=== PATIENT | male | born 1955 | race Two or more races ===

== ENCOUNTER 2016-10-11 14:39 | Emergency (ER) | payer BC ==
[~2016-10-11] VITALS: Ht 167.6 cm; Wt 63.5 kg
--- NOTE | 2016-10-11 15:28 | RAD ---
Left knee with patella, 4 views, 10/11/2016: History: Pain and swelling No fracture or dislocation is identified. No significant arthritic change is seen. No joint effusion is evident. IMPRESSION: No acute left knee abnormality is detected.
--- NOTE | 2016-10-11 16:00 | PHYS DOC ---
Past Medical History Past Medical History: Hypertension Past Surgical History: No Surgical History Alcohol Use: None Drug Use: None Adult General Chief Complaint Chief Complaint: LOWER EXT PAIN [facility] HPI Patient is a 61 year old male presents to the emergency department with a history of left knee pain. Patient denies any, or injury. He was seen at the emergency department on Sunday for the same pain and discomfort. Patient states they were more worried about the melanoma on his head as well as his blood pressure and did not examine his knee. She states that they did provide him with some lisinopril for his blood pressure 5 mg daily. Blood pressure at this time is still elevated 194 over 90s. Patient was recommended to take 2 tablets daily to help with his blood pressure. Patient once again denies any trauma or injury to his knee. He denies any numbness or tingling into the lower leg. He states that the pain is increased when trying to ambulate. Patient has tried Tylenol for pain with little results. Patient denies SOA, denies chest pain, denies headache or blurred vision, denies ringing in the ears. Review of Systems Review of Systems Constitutional: Denies fever or chills [] Eyes: Denies change in visual acuity, redness, or eye pain [] HENT: Denies nasal congestion or sore throat [] Respiratory: Denies cough or shortness of breath [] Cardiovascular: No additional information not addressed in HPI [] GI: Denies abdominal pain, nausea, vomiting, bloody stools or diarrhea [] : Denies dysuria or hematuria [] Musculoskeletal: Denies back pain. C/o left knee pain Integument: Denies rash or skin lesions [] Neurologic: Denies headache, focal weakness or sensory changes [] Endocrine: Denies polyuria or polydipsia [] Allergies Allergies Allergies Coded Allergies Type Severity Reaction Last Updated Verified No Known Drug Allergies 10/11/16 No Physical Exam Physical Exam Constitutional: Well developed, well nourished, no acute distress, non-toxic appearance. [] HENT: Normocephalic, atraumatic, bilateral external ears normal, oropharynx moist, no oral exudates, nose normal. [] Eyes: PERRLA, EOMI, conjunctiva normal, no discharge. [] Neck: Normal range of motion, no tenderness, supple, no stridor. [] Cardiovascular:Heart rate regular rhythm, no murmur [] Lungs & Thorax: Bilateral breath sounds clear to auscultation [] Skin: Warm, dry, no erythema, no rash. [] Back: No tenderness Extremities: Left knee tenderness noted just below the knee, No discoloration noted, no redness noted. No cyanosis, no clubbing, ROM intact, no edema. [] Neurologic: Alert and oriented X 3, normal motor function, normal sensory function, no focal deficits noted. [] Psychologic: Affect normal, judgement normal, mood normal. [] Current Patient Data Vital Signs Vital Signs Date Time Temp Pulse Resp B/P (MAP) Pulse Ox O2 Delivery O2 Flow Rate FiO2 10/11/16 15:33 97.8 64 16 99 Room Air 97.8 EKG EKG [] Radiology/Procedures Radiology/Procedures [][facility] [address] [place] [address] IMAGING REPORT Signed PATIENT: ELLIS DELGADO ACCOUNT: [id number] : 1955 LOCATION: ER AGE: 61 SEX: M EXAM STATUS: PRE ER ORD. PHYSICIAN: MJ MOHAN APRN REASON: knee pain and discomfort PROCEDURE: KNEE LEFT 4V Left knee with patella, 4 views, 10/11/2016: History: Pain and swelling No fracture or dislocation is identified. No significant arthritic change is seen. No joint effusion is evident. IMPRESSION: No acute left knee abnormality is detected. DICTATED and SIGNED BY: GLADYS SMALLWOOD MD DATE: 10/11/16 1525 CC: MJ MOHAN APRN ~ Course & Med Decision Making Course & Med Decision Making Pertinent Labs and Imaging studies reviewed. (See chart for details) Patient will be placed in a knee immobilizer with recommendation for Ibuprofen 600 mg every 8 hours with food, stop taking you develop upset stomach. Patient will be encouraged to take Lisinopril 10 mg daily. Patient will be discharged home in stable condition. Signs and symptoms to return to the emergency department has been provided. [] Dragon Disclaimer Dragon Disclaimer This electronic medical record was generated, in whole or in part, using a voice recognition dictation system. Departure Departure Impression: Primary Impression: Left knee pain Additional Impression: HTN (hypertension) Disposition: HOME, SELF-CARE Condition: STABLE Referrals: NO PCP (PCP) PAUL WHEELER MD Patient Instructions: Hypertension, Knee Immobilizer, [id number], Knee Pain, [id number] Additional Instructions: Activity as tolerated Medication as prescribed Ibuprofen 600 mg every 8 hours with food stop taking if you develop upset stomach Ice packs on 20 minutes and off 20 minutes several times a day Wear the knee immobilizer until you followup with orthopedic Take 10 mg daily of your Lisinopril, monitor your blood pressure at home and keep a log for your doctor Followup with your primary care provider in 3-5 days Return to emergency department for signs and symptoms that become worse. Problem Qualifiers MJ MOHAN APRN October 11, 2016 16:00
[2016-10-11 16:42] VITALS: BP 192/93
== END 2016-10-11 16:49 | disposition home or self-care (01) ==
LOC: ER 14:39
DX: M25.562 Pain in left knee (principal); I10 Essential (primary) hypertension
CPT/HCPCS: 29505; 73564; 99284-25

== ENCOUNTER → 2016-10-23 | Outpatient (CLI) | payer BC ==
[2016-10-11 16:42] VITALS: BP 192/93
--- NOTE | 2016-10-24 08:33 | KCIC ---
MR LUMBAR SPINE HISTORY: Low back pain and left knee pain COMPARISON: None Technique: Sagittal T2, sagittal STIR, and sagittal T1-weighted images were obtained. Additional axial T1 and T2 weighted imaging was also performed. FINDINGS: There is grade 1 degenerative anterolisthesis of L4 on L5. Alignment is otherwise within normal limits. There is no compression fracture or deformity. Bone marrow signal is within normal limits apart from some mild reactive edema at the anterior superior endplates of L2 and L1. The conus terminates normally at the level of L1. L5-S1 there is no spinal stenosis. L4-L5 there is mild bilateral facet arthropathy with grade 1 degenerative anterolisthesis. A broad-based disc bulge is noted. There is also a fissure within the posterior annulus fibrosis of this. The presence of the disc bulge results in mild central spinal and lateral recess stenosis. The remaining intervertebral disc spaces are well maintained. IMPRESSION: Degenerative disc and facet disease at L4-L5 where there is mild central spinal and lateral recess stenosis. The lateral recess stenosis could become more significant if there is a micromotion at this level. Consider flexion-extension views to evaluate this; or correlate for symptoms that correlate to certain postures. There is also an annular fissure tear could be a source of discogenic pain. Electronically signed by: Julius Malone MD (10/24/2016 8:30 AM)
== END | disposition home or self-care (01) ==
LOC: KCIC MRI 16:49
PROVIDERS: ATTEND Physician Assistant Surgical
DX: M48.06 Spinal stenosis, lumbar region (principal); M51.36 Other intervertebral disc degeneration, lumbar region; M25.562 Pain in left knee; G89.29 Other chronic pain
CPT/HCPCS: 72148